=== PATIENT | male | born 1990 | race African-American/Black ===

== ENCOUNTER → 2020-09-27 | Outpatient (CLI) | payer OTHER ==
--- NOTE | 2020-09-30 07:33 | REP ---
INDICATION: RIGHT BREAST AREA,POSSIBLE CELLULITIS. COMPARISON: None TECHNIQUE: Real-time sonographic evaluation of right breast performed. FINDINGS: Reportedly there is a lump and skin changes just above the right nipple. Scanning of this area demonstrates an ill-defined hypoechoic area in the dermis. It measures 6 x 5 x 3 mm. No other abnormalities are seen. There is no fluid collection or focal mass. IMPRESSION: BIRADS/ACR 3 probably benign. At the site of the reported palpable lump in skin changes above the right nipple there is ill-defined hypoechoic echotexture in the dermis measuring 6 x 5 x 3 mm. There is no sonographic evidence of a mass at that location, or fluid collection. The findings are nonspecific, they could indicate focal inflammation, and clinical correlation is necessary. RECOMMENDATION: Clinical correlation. <Electronically signed by Mayco Cowart > 09/27/20 [id number]
== END ==
LOC: M WHC 16:05
PROVIDERS: ATTEND Physician Assistant
DX: R92.8 Other abnormal and inconclusive findings on diagnostic imaging of breast (principal)

== ENCOUNTER 2020-12-03 17:15 | Emergency (ER) | payer OTHER ==
[~2020-12-03] VITALS: Ht 170.2 cm; Wt 81.8 kg
[2020-12-03] MEDS ORDERED: VITA200016 PO (17:41)
[2020-12-03] MEDS ORDERED: DULO1CAP5 PO (17:41)
[2020-12-03] MEDS ORDERED: LIDO5DIS41 TOP (18:34)
[2020-12-03] MEDS ORDERED: diazePAM 10 MG TAB PO ONE (18:55)
[2020-12-03] MEDS ORDERED: KETOROLAC 60MG 2ML VIAL IM ONE (18:55)
[2020-12-03] MEDS ORDERED: predniSONE 20 MG TAB PO ONE (18:55)
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
[2020-12-03] MEDS ORDERED: NORCO 5/325MG TABLET (BULK FOR ED) PO ONE (21:40)
[2020-12-03] MEDS ORDERED: methocarbamoL 750 MG TAB PO ONE (21:40)
[2020-12-03] MEDS ORDERED: PRED20TA PO (21:41)
[2020-12-03] MEDS ORDERED: ROBA750T4 PO (21:41)
[2020-12-03] MEDS ORDERED: HYDR-3713 PO (21:41)
[2020-12-03 21:58] VITALS: BP 138/92
--- NOTE | 2020-12-04 10:30 | ED PDOC ---
Post-Departure Follow-Up mrs ls spine faxed to migue youssef and dr villaseñor for fu Saurav Jeff MD Dec 04, 2020 10:30
== END 2020-12-03 21:59 | disposition home or self-care (01) ==
LOC: M ED 17:15
DX: M54.16 Radiculopathy, lumbar region (principal); R32 Unspecified urinary incontinence; R56.9 Unspecified convulsions; Z79.899 Other long term (current) drug therapy
CPT/HCPCS: 72148; 96372; 99283; J1885

== ENCOUNTER → 2021-03-06 | Outpatient (CLI) | payer OTHER ==
[~2021-03-06] MED LIST: DULO1CAP5 PO; HYDR-3713 PO; LIDO5DIS41 TOP; PRED20TA PO; ROBA750T4 PO; VITA200016 PO
[2021-03-06 15:49] LABS: PLATELET COUNT, AUTOMATED 204 10^3/uL (150-450)
[2021-03-06 16:03] LABS: INR 0.96
[2021-03-06 16:04] LABS: PARTIAL THROMBOPLASTIN TIME 31.5 SECONDS (24.2-38.5)
== END ==
LOC: M LAB 15:08
PROVIDERS: ATTEND Physical Medicine & Rehabilitation
DX: Z01.812 Encounter for preprocedural laboratory examination (principal)

== ENCOUNTER 2021-04-21 10:13 | Emergency (ER) | payer OTHER ==
[~2021-04-21] VITALS: Ht 170.2 cm; Wt 88.9 kg
[2021-04-21 10:13] VITALS: BP 162/94
[2021-04-21] MEDS ORDERED: BUPR300T92 PO (11:31)
[2021-04-21] MEDS ORDERED: CYCLOBENZAPRINE 5MG TABLET PO ONE (11:50)
[2021-04-21] MEDS ORDERED: ACETAMINOPHEN 500 MG TAB PO ONE (11:50)
[2021-04-21] MEDS ORDERED: KETOROLAC 30 MG/ML 1ML VIAL IM ONE (11:50)
[2021-04-21] MEDS ORDERED: ACET-683 PO (12:45)
[2021-04-21] MEDS ORDERED: GABA-282 PO (12:45)
== END 2021-04-21 12:51 | disposition home or self-care (01) ==
LOC: M ED 10:13
DX: M51.37 Other intervertebral disc degeneration, lumbosacral region (principal); F33.9 Major depressive disorder, recurrent, unspecified; Z79.899 Other long term (current) drug therapy; F17.210 Nicotine dependence, cigarettes, uncomplicated
CPT/HCPCS: 96372; 99282; J1885

== ENCOUNTER → 2021-07-09 | Outpatient (REF) ==
[~2021-07-09] MED LIST changes: +ACET-683 PO; +BUPR300T92 PO; +GABA-282 PO
--- NOTE | 2021-07-09 14:58 | REP ---
INDICATION: PAIN/SOB. COMPARISON: None. TECHNIQUE: PA and lateral FINDINGS: The superior mediastinal structures are midline. The cardiac silhouette is unremarkable in size, shape, and position. The diaphragmatic surfaces of the lungs are regular, and the costophrenic angles are clear. The pulmonary melendez are clear. The imaged osseous structures are intact. IMPRESSION: There is no acute cardiopulmonary disease. <Electronically signed by Tremaine Lowery > 07/09/21 [id number]
--- NOTE | 2021-07-09 16:58 | REP ---
INDICATION: PAIN/SOB. COMPARISON: None TECHNIQUE: AP lateral view FINDINGS: Vertebral body height and alignment is within normal limits. The pedicles are intact bilaterally. The disc spaces are symmetric and well maintained throughout. IMPRESSION: Within normal limits <Electronically signed by Tremaine Lowery > 07/09/21 [id number]
--- NOTE | 2021-07-09 16:59 | REP ---
INDICATION: PAIN/SOB. COMPARISON: None TECHNIQUE: Multiple views of the lumbosacral spine. FINDINGS: The 12th ribs are hypoplastic. There are 5 lumbar appearing vertebral bodies. Vertebral body height and alignment is within normal limits. The pedicles are intact bilaterally. The disc spaces are symmetric and well maintained. IMPRESSION: Within normal limits <Electronically signed by Tremaine Lowery > 07/09/21 [id number]
== END ==
LOC: M PLAIMG 12:08
PROVIDERS: ATTEND Internal Medicine
DX: R06.02 Shortness of breath (principal)

== ENCOUNTER 2021-10-14 13:48 | Emergency (ER) | payer OTHER ==
[~2021-10-14] VITALS: Ht 174 cm; Wt 86.9 kg
[2021-10-14] MEDS ORDERED: KETOROLAC 60MG 2ML VIAL IM ONE (14:50)
[2021-10-14 16:56] VITALS: BP 131/90
== END 2021-10-14 16:57 | disposition home or self-care (01) ==
LOC: M ED 13:48
DX: M51.37 Other intervertebral disc degeneration, lumbosacral region (principal); M48.07 Spinal stenosis, lumbosacral region; M53.3 Sacrococcygeal disorders, not elsewhere classified; V89.2XXA Person injured in unspecified motor-vehicle accident, traffic, initial encounter; F32.A Depression, unspecified
CPT/HCPCS: 72110; 72220; 96372; 99283; J1885

== ENCOUNTER → 2022-09-14 | Outpatient (CLI) | payer OTHER | LOC: M SLEEP 20:00 | PROVIDERS: ATTEND Nurse Practitioner Family | DX: G47.33 Obstructive sleep apnea (adult) (pediatric) (principal) ==

== ENCOUNTER → 2023-02-18 | Outpatient (CLI) | payer OTHER | LOC: M SLEEP 20:00 | PROVIDERS: ATTEND Nurse Practitioner Family | DX: G47.33 Obstructive sleep apnea (adult) (pediatric) (principal) ==